=== PATIENT | male | born 1950 | race Caucasian/White ===

== ENCOUNTER → 2019-02-07 | Outpatient (CLI) | payer OTHER | LOC: M.MRI 08:24 | DX: S83.242A Other tear of medial meniscus, current injury, left knee, initial encounter (principal); M17.12 Unilateral primary osteoarthritis, left knee; X58.XXXA Exposure to other specified factors, initial encounter; Y93.89 Activity, other specified; Y92.89 Other specified places as the place of occurrence of the external cause; Y99.8 Other external cause status ==

== ENCOUNTER 2019-03-19 08:24 | Inpatient (IN) | payer MEDICARE ==
[2019-03-04 10:48] LABS: URINE BILIRUBIN NEGATIVE (Negative); URINE BLOOD NEGATIVE (Negative); URINE CLARITY CLEAR; URINE COLOR YELLOW; URINE GLUCOSE-RANDOM NEGATIVE (Negative); URINE KETONES NEGATIVE (Negative); URINE LEUKOCYTES-REFLEX NEGATIVE (Negative); URINE NITRITE-REFLEX NEGATIVE (Negative); URINE PROTEIN 1+ (Negative); URINE UROBILINOGEN 0.2 E.U./dl (0.2-1.0)
[2019-03-04 10:49] LABS: HEMATOCRIT 49.1 % (42.0-52.0); HEMOGLOBIN 16.9 gm/dL (14.0-18.0); MCH 30.3 pg (26.0-34.0); MCHC 34.5 g/dL (28.0-37.0); MCV 87.8 fL (80.0-100.0); MPV 8.8 fl. (7.2-11.1); RBC 5.59 mil/uL (4.50-6.00); RDW-CV 14.1 % (10.5-14.5)
[2019-03-04 10:55] LABS: PROTIME 10.2 Seconds (9.20-11.50)
[2019-03-04 11:04] LABS: ALBUMIN 3.9 g/dL (3.4-5.0); CALCIUM 8.5 mg/dL (8.5-10.1); CREATININE 1.7 mg/dL (0.6-1.3); TOTAL BILIRUBIN 0.6 mg/dL (<0.1-1.0); TOTAL PROTEIN 7.9 g/dL (6.4-8.2)
--- NOTE | 2019-03-04 17:14 | EKG ---
[place] [address] ELECTROCARDIOGRAM REPORT Name: VIKI STEINER Room: PRE IN [facility]#: [id number] Admission: Attend Phys: Virginia Gould Discharge: Date of : 52 Report #: [id number] THIS REPORT FOR: //name// [facility] Test Date: 2019-03-04 Test Time: 11:33:44 Pat Name: VIKI STEINER Department: Room: Gender: M Departmental Shipping Clerk: : 1950 Requested By: Panchito Tovar Order Number: [id number] Reading MD: Roby Osorio Measurements Intervals [place] Rate: 65 P: 31 OR: 214 QRS: -34 QRSD: 93 T: 56 QT: 403 QTc: 419 Interpretive Statements Sinus rhythm Borderline prolonged OR interval Left axis deviation No previous ECG available for comparison Electronically Signed On 03-04-2019 17:13:47 ARCHIVAL STUDIES PROFESSOR by Roby Osorio [email or web address] <ELECTRONICALLY SIGNED> By: Roby Osorio MD, [facility] 03/04/19 1713 1133 1133 Roby Osorio MD, FACC /EPI
[~2019-03-19] VITALS: Ht 180.3 cm; Wt 96.6 kg
[~2019-03-19 08:24] MED LIST: ALEVE220 M1 PO; ASPIR 8181 M1 PO; BLACK ELDERBER1 EACH PO; CRESTOR20 MG PO; FISH OIL 1,0001 EAC9 PO; LOPRESSOR50 MG PO; NEURONTIN100 MG PO; ONDANSETRON ODT4 MG PO; SINGULAIR 10 MG10 M1 PO; SYMBICORT80 MCG/4.1 INH; TOPAMAX25 M1 PO; VITAMINC500 PO
[2019-03-19 10:04] VITALS: BP 122/83
[2019-03-19 14:21] VITALS: BP 111/76
[2019-03-19 17:15] VITALS: BP 119/61
[2019-03-19 20:00] VITALS: BP 118/65
[2019-03-20] VITALS: BP 101/59
[2019-03-20 04:00] VITALS: BP 121/64
[2019-03-20 07:55] VITALS: BP 113/61
[2019-03-20 10:42] VITALS: BP 113/61
[2019-03-20] MEDS ORDERED: PERCOCET 5-3251 EACH PO (10:52)
[2019-03-20] MEDS ORDERED: XARELTO10 M1 PO (10:53)
--- NOTE | 2019-03-20 13:33 | OP ---
[facility] [address] [place] [address] OPERATIVE REPORT Name: VIKI STEINER Room: [address] IN M.R.#: [id number] Admission: 03/19/19 Attend Phys: Virginia Gould Discharge: Date of : 52 Report #: [id number] THIS REPORT FOR: //name// CC: Gary Wheeler DATE OF SERVICE: 03/19/2019 PREOPERATIVE DIAGNOSIS: Left knee osteoarthritis. POSTOPERATIVE DIAGNOSIS: Left knee osteoarthritis. PROCEDURE: Left total knee arthroplasty. SURGEON: Panchito Tovar II, DO. PROCUREMENT BUYER: LAURA Weiss. ANESTHESIA: General endotracheal. ESTIMATED BLOOD LOSS: 50 mL. ANTIBIOTICS: Ancef preoperatively. DRAINS: Medium Hemovac. COMPLICATIONS: None. CONDITION OF THE PATIENT: Stable to recovery room. IMPLANTS: Listed in operative record and progress note. BRIEF HISTORY: The patient was seen in the preoperative area. Preoperative H and P was signed. The patient's site was marked, questions were answered. Risks and benefits were discussed with the patient in detail about surgery. The patient wished to proceed, assuming all risks. DESCRIPTION OF PROCEDURE: The patient was taken to the operative suite and placed supine on the operating table, given appropriate anesthesia. The patient had a well-padded tourniquet applied to the upper thigh, which was inflated to 300 mmHg after gravity exsanguination. The operative knee was sterilely prepped and draped. Surgery began by midline incision. This was carried down to the subcutaneous tissues. A medial parapatellar arthrotomy was then performed and carried down to bone. Patella was then everted and excess soft tissue removed from around the femur. Femoral cutting block was then applied, checked with [facility] [address] [place] [address] OPERATIVE REPORT Name: VIKI STEINER Room: [address] IN [facility].#: [id number] Admission: 03/19/19 Attend Phys: Virginia Gould Discharge: Date of : 52 Report #: [id number] drop amelia for rotational alignment, pinned in appropriate position and appropriate cuts were made. A 4-in-1 cutting block was then applied, checked for rotational alignment, pinned in appropriate position and appropriate cuts were made. The tibia was exposed. Excess meniscus was removed. Retractor was placed on collateral ligaments. The tibial cutting block was then applied, pinned in appropriate position, checked with drop amelia for rotational alignment and slope and appropriate cut was made. The tibial bone was removed. Tibial base plate was then applied, checked for rotational alignment with the drop amelia and pinned in appropriate position. The femur was then applied and box cut was reamed. This was then trialed with appropriate spacer, which showed excellent fit and fill and excellent stability through all range of motion. The patella was then reamed in appropriate fashion and sized to appropriate size. Three peg holes were drilled and it was then trialed and showed excellent flexion, extension, excellent tracking of the patella within the groove. These trials were then removed. The tibia was punched in appropriate fashion. Bone ends were cleansed with Pulsavac irrigation and cement was mixed and applied to final implants. These were then malleted into position and held the extension and compressed to allow cement to cure. After it cured, excess was removed utilizing [place] and osteotome. Wound was then copiously irrigated and the final spacer was then malleted into position. The tourniquet was deflated. Hemostasis was obtained with electrocautery. Pain cocktail was injected. PRP gel sprayed to internal aspects of the knee. Medium Hemovac drain was applied. Capsule was closed with #2 FiberWire and #1 Vicryl in [id number] fashion. Skin was closed with 2-0 Vicryl and running 3-0 Monocryl. Dermabond and sterile dressing applied. Thierry wrap and PolarCare applied. The patient transported to recovery room in stable condition. Counts were correct throughout the procedure. <ELECTRONICALLY SIGNED> By: Panchito Tovar II, DO 03/20/19 1333 [id number] Tovar II, DO /nt
== END 2019-03-20 16:55 | disposition home health service (06) | DRG 470 ==
LOC: M.TBA 08:24 → M.ORTHSURG 08:24 → M.PRE 08:30 → M.ORTHSURG 13:47 → M.PRE 15:00 → M.ORTHSURG 17:48
PROVIDERS: Orthopaedic Surgery; ADMIT Internal Medicine
PROC: 0SRD0J9 Replacement of Left Knee Joint with Synthetic Substitute, Cemented, Open Approach (ICD-10-PCS; principal; 2019-03-19)
DX: M17.12 Unilateral primary osteoarthritis, left knee (principal); I10 Essential (primary) hypertension; E78.5 Hyperlipidemia, unspecified; I25.10 Atherosclerotic heart disease of native coronary artery without angina pectoris; E78.00 Pure hypercholesterolemia, unspecified; J44.9 Chronic obstructive pulmonary disease, unspecified; G43.909 Migraine, unspecified, not intractable, without status migrainosus; Z95.5 Presence of coronary angioplasty implant and graft; Z79.899 Other long term (current) drug therapy; Z79.82 Long term (current) use of aspirin; Z90.49 Acquired absence of other specified parts of digestive tract; Z87.891 Personal history of nicotine dependence; Z72.89 Other problems related to lifestyle; Z88.8 Allergy status to other drugs, medicaments and biological substances